=== PATIENT | female | born 1985 | race African-American/Black ===

== ENCOUNTER → 2017-04-10 | Emergency (ER) | payer BC, OTHER ==
[~2017-04-10] VITALS: Ht 172.7 cm; Wt 63.5 kg
[~2017-04-10] MED LIST: LABETALOL 20 MG/4 ML VIAL IV ONE; LABETALOL HCL IV 100MG VIAL ONE
--- NOTE | 2017-04-10 20:23 | NUR ---
PT BIB BY FAMILY FOR C/O OF RASH AT UPPER EXTREMITIES AND CHEST. NO COMPLAINTS OF PAIN, DIFFICULTY BREATHING OR SWALLOWING. PT PRESENTS WITH ELEVATED BLOOD PRESSURE WITH SBP IN 180-190s. PT STATES SHE WENT TO AN URGENT CARE EARLIER TODAY FOR THE RASH AND WAS TOLD TO GO TO ER DUE TO HER ELEVATED BP. STATES SHE HAS NO HX OF HYPERTENSION AND DOES NOT TAKE ANY MEDICATION.
[2017-04-10 20:41] LABS: BASOPHILS % (AUTO) 0.3 % (0.0-2.0); EOSINOPHILS # (AUTO) 0.2 /CMM (0.0-0.7); EOSINOPHILS % (AUTO) 3.3 % (0.0-6.0); HEMATOCRIT 44 % (33-45); HEMOGLOBIN 14.4 g/dL (11.5-14.8); LYMPHOCYTES # (AUTO) 1.3 /CMM (0.8-4.8); MEAN CORPUSCULAR HEMOGLOBIN 29 PG (26.0-33.0); MEAN CORPUSCULAR HGB CONC 33 g/dl (31.0-36.0); MEAN CORPUSCULAR VOLUME 90 fL (82-100); MONOCYTES # (AUTO) 0.6 /CMM (0.1-1.30); MONOCYTES % (AUTO) 8.4 % (2.0-12.0); NEUTROPHILS # (AUTO) 4.7 /CMM (1.8-8.9); PLATELET COUNT (AUTO) 149 /CMM (150-450); RDW COEFFICIENT OF VARIATION 13.6 (11.5-15.0); WHITE BLOOD COUNT (AUTO) 6.8 K/uL (4.3-11.0)
[2017-04-10 20:49] LABS: CALCIUM, SERUM 9.8 mg/dL (8.5-10.1); CREATININE 0.8 mg/dL (0.6-1.3); POTASSIUM 3.5 mmol/L (3.5-5.1)
[2017-04-10 22:14] VITALS: BP 157/104
== END | disposition home or self-care (01) ==
LOC: ER 19:44
DX: B02.9 Zoster without complications (principal); I10 Essential (primary) hypertension; F17.200 Nicotine dependence, unspecified, uncomplicated
CPT/HCPCS: 36415; 80048; 85025; 96374; 99284; A4606; J3490; Z7610